=== PATIENT | male | born 1935 | race Caucasian/White ===

== ENCOUNTER 2017-02-20 18:50 | Inpatient (IN) | payer MEDICARE ==
[~2017-02-20] VITALS: Ht 167.6 cm; Wt 93.5 kg
[2017-02-20] MEDS ORDERED: ACETAMINOPHEN 500 MG TABLET ONE (19:09)
[2017-02-20] MEDS ORDERED: SODIUM CHLORIDE FLUSH 10ML SYR IVF ONE (19:30)
[2017-02-20] MEDS ORDERED: ACETAMINOPHEN 500 MG TABLET PO ONE (19:30)
[2017-02-20] MEDS ORDERED: SODIUM CHLORIDE 0.9% 1,000ML IVBOLUS ONE (19:30)
[2017-02-20 19:40] LABS: BASOPHILS # (AUTO) 0.01 x10^3/uL (0-0.1); BASOPHILS % (AUTO) 0 % (0-1); EOSINOPHILS # (AUTO) 0.01 x10^3/uL (0-0.4); EOSINOPHILS % (AUTO) 0 % (1-7); LYMPHOCYTES # (AUTO) 0.71 x10^3/uL (1-3.4); LYMPHOCYTES % (AUTO) 10 % (22-44); MD NO; MEAN CORPUSCULAR HEMOGLOBIN 28.4 pg (27.5-34.5); MEAN CORPUSCULAR HGB CONC 32.5 g/dL (33.2-36.2); MEAN CORPUSCULAR VOLUME 87.6 fL (81-97); MEAN PLATELET VOLUME 8.5 fL (7.4-10.4); MONOCYTES # (AUTO) 0.75 x10^3/uL (0.2-0.8); MONOCYTES % (AUTO) 11 % (2-9); NEUTROPHILS # (AUTO) 5.58 x10^3/uL (1.8-6.8); NEUTROPHILS % (AUTO) 79 % (42-75); PLATELET COUNT 147 x10^3/uL (130-400); RED BLOOD COUNT 4.08 x10^6/uL (4.38-5.82)
[2017-02-20 19:46] LABS: ALANINE AMINOTRANSFERASE 20 U/L (12-78); ALBUMIN 2.8 g/dL (3.4-5.0); ANION GAP 7 mmol/L (5-15); CALCIUM 8.3 mg/dL (8.5-10.1); CHLORIDE 97 mmol/L (98-107); CREATININE 2.83 mg/dL (0.7-1.3)
[2017-02-20 19:48] LABS: ALKALINE PHOSPHATASE 91 U/L (45-117); BILIRUBIN,TOTAL 0.5 mg/dL (0.2-1.0); TOTAL PROTEIN 7.2 g/dL (6.4-8.2)
[2017-02-20 19:57] LABS: INTERNATIONAL NORMALIZED RATIO 1.24 (0.93-1.1); PROTHROMBIN TIME 12.7 Seconds (9.6-11.5)
[2017-02-20] MEDS ORDERED: FUROSEMIDE 40 MG/4 ML IV ONE (22:00)
[2017-02-20] MEDS ORDERED: POLYETHYLENE GLYCOL 17 GM PACKET PO PRN (22:30)
[2017-02-20] MEDS ORDERED: ONDANSETRON 2MG/ML, 2ML IVPush PRN (22:30)
[2017-02-20] MEDS ORDERED: ACETAMINOPHEN 325 MG TABLET PO PRN (22:30)
[2017-02-20] MEDS ORDERED: morphine SULFATE 10 MG/ML, 1ML IVPush PRN (22:30)
[2017-02-20] MEDS ORDERED: BISACODYL 10 MG SUPP PR PRN (22:30)
[2017-02-20] MEDS ORDERED: CEFTRIAXONE PMX 1GM/50ML 50 ML IV SCH (22:30)
[2017-02-20] MEDS ORDERED: NITROGLYCERIN 0.4 MG BOTTLE (25 TABS) SL PRN (22:30)
[2017-02-20] MEDS ORDERED: AZITHROMYCIN 500 MG in SODIUM CHLORIDE 0.9% 250 ML IV SCH (22:30)
[2017-02-20] MEDS ORDERED: GUAIFENESIN/DM 200-20MG, 10ML UDC PO PRN (22:30)
[2017-02-20] MEDS ORDERED: VANCOMYCIN PER PHARMACY MC PRN (23:00)
[2017-02-20] MEDS ORDERED: PIPERACILLIN/TAZO/PMX 3.375GM 50 ML ONE (23:23)
[2017-02-20] MEDS: PIPERACILLIN/TAZO/PMX 3.375GM 50 ML IV SCH (23:29)
[2017-02-21] MEDS ORDERED: PHARMACOKINETIC CONSULTATION MC ONE (00:30)
[2017-02-21] MEDS ORDERED: PHARMACOKINETIC MONITORING MC PRN (00:30)
[2017-02-21] MEDS ORDERED: VANCOMYCIN 1,600 MG in SODIUM CHLORIDE 0.9% 250 ML IV ONE (00:30)
[2017-02-21] MEDS: SODIUM CHLORIDE FLUSH 10ML SYR IVF SCH ×3 (01:07→20:13)
[2017-02-21] MEDS: HEPARIN 5,000 UNITS/ML, 1ML SQ SCH ×3 (01:07→17:37)
[2017-02-21 02:07] VITALS: BP 142/64
[2017-02-21 03:10] LABS: RAPID INFLUENZA A POSITIVE (Negative); RAPID INFLUENZA B Negative (Negative)
[2017-02-21 03:29] VITALS: BP 157/68
[2017-02-21] MEDS: PIPERACILLIN/TAZO/PMX 3.375GM 50 ML IV SCH (05:25)
[2017-02-21] MEDS: ASPIRIN 81 MG TABLET EC PO SCH (05:32)
[2017-02-21 06:09] LABS: BASOPHILS # (AUTO) 0.02 x10^3/uL (0-0.1); BASOPHILS % (AUTO) 0 % (0-1); EOSINOPHILS % (AUTO) 0 % (1-7); LYMPHOCYTES # (AUTO) 0.69 x10^3/uL (1-3.4); LYMPHOCYTES % (AUTO) 9 % (22-44); MD NO; MEAN CORPUSCULAR HEMOGLOBIN 28.6 pg (27.5-34.5); MEAN CORPUSCULAR HGB CONC 32.7 g/dL (33.2-36.2); MEAN CORPUSCULAR VOLUME 87.5 fL (81-97); MEAN PLATELET VOLUME 8.8 fL (7.4-10.4); MONOCYTES # (AUTO) 1.02 x10^3/uL (0.2-0.8); MONOCYTES % (AUTO) 13 % (2-9); NEUTROPHILS # (AUTO) 6.16 x10^3/uL (1.8-6.8); NEUTROPHILS % (AUTO) 78 % (42-75); PLATELET COUNT 122 x10^3/uL (130-400); RED BLOOD COUNT 3.67 x10^6/uL (4.38-5.82); RED CELL DISTRIBUTION WIDTH 16.1 % (9.4-14.8)
[2017-02-21 06:20] LABS: ALBUMIN 2.4 g/dL (3.4-5.0); CHLORIDE 100 mmol/L (98-107)
[2017-02-21 06:26] LABS: ALANINE AMINOTRANSFERASE 17 U/L (12-78); ALKALINE PHOSPHATASE 77 U/L (45-117); ANION GAP 9 mmol/L (5-15); BILIRUBIN,TOTAL 0.6 mg/dL (0.2-1.0); CREATININE 3.08 mg/dL (0.7-1.3); TOTAL PROTEIN 6.4 g/dL (6.4-8.2)
[2017-02-21 09:40] VITALS: BP 134/66
[2017-02-21] MEDS: SENNA/DOCUSATE TABLET PO SCH (09:51)
[2017-02-21] MEDS ORDERED: METO50TA6 PO (10:15)
[2017-02-21] MEDS ORDERED: HYDR12.58 PO (10:15)
[2017-02-21] MEDS ORDERED: INSU100V8 SQ (10:15)
[2017-02-21] MEDS ORDERED: CHOL500050 PO (10:15)
[2017-02-21] MEDS ORDERED: INSU100I17 SQ ×2 (10:15)
[2017-02-21] MEDS ORDERED: MAGN400T7 PO (10:15)
[2017-02-21] MEDS ORDERED: LOSA100T6 PO (10:15)
[2017-02-21] MEDS ORDERED: TERA5CAP3 PO (10:15)
[2017-02-21] MEDS: OSELTAMIVIR 75 MG CAPSULE PO SCH ×2 (12:56→20:12)
[2017-02-21] MEDS: PIPERACILLIN/TAZO/PMX 2.25GM 50 ML IVPB SCH ×2 (12:56→17:37)
[2017-02-21 13:51] VITALS: BP 146/65
[2017-02-21 15:45] VITALS: BP 123/56
[2017-02-21 18:12] LABS: MICROSCOPIC INDICATED
[2017-02-21 18:30] LABS: CULTURE INDICATED? NO
[2017-02-21 19:19] VITALS: BP 139/62
[2017-02-21] MEDS: METOPROLOL TARTRATE 50 MG TABLET PO SCH (20:13)
[2017-02-21] MEDS: TERAZOSIN 5MG CAPSULE PO SCH (20:13)
[2017-02-22] MEDS: PIPERACILLIN/TAZO/PMX 2.25GM 50 ML IVPB SCH ×2 (00:57→06:13)
[2017-02-22] MEDS: HEPARIN 5,000 UNITS/ML, 1ML SQ SCH ×3 (00:57→16:55)
[2017-02-22 00:59] VITALS: BP 124/64
[2017-02-22] MEDS: ASPIRIN 81 MG TABLET EC PO SCH (06:13)
[2017-02-22 07:17] LABS: ANION GAP 9 mmol/L (5-15); CALCIUM 7.7 mg/dL (8.5-10.1); CHLORIDE 99 mmol/L (98-107)
[2017-02-22 07:25] LABS: TROPONIN I 0.897 ng/mL (0.000-0.045)
[2017-02-22 08:44] VITALS: BP 117/60
[2017-02-22] MEDS: SODIUM CHLORIDE FLUSH 10ML SYR IVF SCH ×2 (09:17→21:08)
[2017-02-22] MEDS: OSELTAMIVIR 75 MG CAPSULE PO SCH ×2 (09:17→21:08)
[2017-02-22] MEDS: TERAZOSIN 5MG CAPSULE PO SCH ×2 (09:18→21:09)
[2017-02-22] MEDS: SENNA/DOCUSATE TABLET PO SCH (09:19)
[2017-02-22] MEDS: LOSARTAN 50MG TABLET PO SCH (09:19)
[2017-02-22] MEDS: MAGNESIUM OXIDE 400 MG TABLET PO SCH (09:19)
[2017-02-22] MEDS: METOPROLOL TARTRATE 50 MG TABLET PO SCH ×2 (09:19→21:09)
[2017-02-22] MEDS: INSULIN DETEMIR 100 UNITS/ML, PEN SQ-INSULIN SCH (09:55)
[2017-02-22 14:05] VITALS: BP 116/65
[2017-02-22 20:06] VITALS: BP 127/64
[2017-02-22] MEDS: DOXYCYCLINE 100MG TABLET PO SCH (21:08)
[2017-02-23 01:55] VITALS: BP 128/59
[2017-02-23] MEDS: HEPARIN 5,000 UNITS/ML, 1ML SQ SCH ×3 (02:16→17:00)
[2017-02-23] MEDS: ASPIRIN 81 MG TABLET EC PO SCH (06:25)
[2017-02-23 06:42] VITALS: BP 155/70
[2017-02-23] MEDS: LOSARTAN 50MG TABLET PO SCH (09:00)
[2017-02-23] MEDS: METOPROLOL TARTRATE 50 MG TABLET PO SCH (09:00)
[2017-02-23] MEDS ORDERED: POTASSIUM CHLORIDE 20 MEQ TAB.ER.PRT PO ONE (09:00)
[2017-02-23] MEDS: TERAZOSIN 5MG CAPSULE PO SCH (09:00)
[2017-02-23 09:32] LABS: CHLORIDE 100 mmol/L (98-107)
[2017-02-23 09:33] LABS: ANION GAP 9 mmol/L (5-15)
[2017-02-23] MEDS: MAGNESIUM OXIDE 400 MG TABLET PO SCH (09:46)
[2017-02-23] MEDS: SODIUM CHLORIDE FLUSH 10ML SYR IVF SCH (09:46)
[2017-02-23] MEDS: SENNA/DOCUSATE TABLET PO SCH (09:46)
[2017-02-23] MEDS: OSELTAMIVIR 75 MG CAPSULE PO SCH (09:47)
[2017-02-23] MEDS: DOXYCYCLINE 100MG TABLET PO SCH (09:47)
[2017-02-23] MEDS: INSULIN DETEMIR 100 UNITS/ML, PEN SQ-INSULIN SCH (09:48)
[2017-02-23 13:41] VITALS: BP 161/71
[2017-02-23 15:03] VITALS: BP 168/69
[2017-02-23] MEDS ORDERED: OSEL75CA PO (15:38)
[2017-02-23 18:46] VITALS: BP 119/62
== END 2017-02-23 19:50 | disposition home or self-care (01) | DRG 871 ==
LOC: ED 21:22 → EDIP 21:43 → 5SO 02-21 00:09
PROVIDERS: ADMIT Surgery; ATTEND Internal Medicine
PROC: 5A1D70Z Performance of Urinary Filtration, Intermittent, Less than 6 Hours Per Day (ICD-10-PCS; principal; 2017-02-23)
DX: A41.9 Sepsis, unspecified organism (principal); I21.4 Non-ST elevation (NSTEMI) myocardial infarction; E43 Unspecified severe protein-calorie malnutrition; I13.2 Hypertensive heart and chronic kidney disease with heart failure and with stage 5 chronic kidney disease, or end stage renal disease; D68.59 Other primary thrombophilia; E11.21 Type 2 diabetes mellitus with diabetic nephropathy; E44.0 Moderate protein-calorie malnutrition; I48.2 Chronic atrial fibrillation; E11.65 Type 2 diabetes mellitus with hyperglycemia; E11.22 Type 2 diabetes mellitus with diabetic chronic kidney disease; N18.6 End stage renal disease; I50.21 Acute systolic (congestive) heart failure; I31.3 Pericardial effusion (noninflammatory); D63.1 Anemia in chronic kidney disease; E66.9 Obesity, unspecified; E83.51 Hypocalcemia; E87.6 Hypokalemia; J10.1 Influenza due to other identified influenza virus with other respiratory manifestations; N25.0 Renal osteodystrophy; I25.10 Atherosclerotic heart disease of native coronary artery without angina pectoris; I25.2 Old myocardial infarction; Z79.4 Long term (current) use of insulin; Z82.49 Family history of ischemic heart disease and other diseases of the circulatory system; Z87.891 Personal history of nicotine dependence; Z95.0 Presence of cardiac pacemaker; Z95.1 Presence of aortocoronary bypass graft; Z83.3 Family history of diabetes mellitus
CPT/HCPCS: 36415; 71020; 71250; 80048; 80053; 81001; 82962; 83605; 83735; 83880; 84145; 84484; 85025; 85610; 86704; 86706; 86803; 87040; 87070; 87205; 87340; 87400; 93005; 96360; 96361; J1644; J1940; J2543; J3370; J1815; J7030; J7050